=== PATIENT | male | born 1970 | race Caucasian/White ===

== ENCOUNTER 2017-09-29 10:41 | Inpatient (IN) | payer OTHER ==
[~2017-09-29] VITALS: Ht 172.7 cm; Wt 104.9 kg
[~2017-09-29 10:41] MED LIST: ALBUAER3 IN; AMLO5TAB2 PO; IBUP800T24 PO; MONT10TA23 PO; RIZA10TA24 OR; TRAM50TA2 PO
[2017-09-29] MEDS ORDERED: ceFAZolin 1GM/50ML 100 ML IV ONE (11:24)
[2017-09-29] MEDS ORDERED: ACETAMINOPHEN IV 100 ML IV ONE (11:24)
[2017-09-29] MEDS ORDERED: PREGABALIN CAPSULE 75 MG CAP PO ONE (11:30)
[2017-09-29] MEDS ORDERED: ACETAMINOPHEN IV 1000 MG/100ML (10MG/ML) IV ONE (11:30)
[2017-09-29] MEDS ORDERED: ceFAZolin 1GM 2 GM in D5W 5% 100 ML IV ONE (11:30)
[2017-09-29] MEDS ORDERED: CELECOXIB 100 MG CAP PO ONE (11:30)
[2017-09-29] MEDS ORDERED: BUPIVACAINE W/ EPINEPH 0.25% INJ 50ML MDV ONE (13:15)
[2017-09-29] MEDS ORDERED: TRANEXAMIC ACID 20 ML ONE (13:16)
[2017-09-29] MEDS ORDERED: VANCOMYCIN HCL 1000 MG VL ONE (13:19)
[2017-09-29] MEDS ORDERED: LIDOCAINE HCL 2 %PF INJ 10ML AMP IJ ONE (13:37)
[2017-09-29] MEDS ORDERED: PROPOFOL 10 MG/ML 20 ML IV ONE (13:37)
[2017-09-29] MEDS ORDERED: ROCURONIUM 10MG/ML 10ML VIAL IV ONE (13:37)
[2017-09-29] MEDS ORDERED: fentaNYL CITRATE 5 ML ONE (13:37)
[2017-09-29] MEDS ORDERED: MORPHINE SULF(PF) 0.5MG/ML 10ML VIAL ONE (13:40)
[2017-09-29] MEDS ORDERED: KETOROLAC TROMETH 30 MG/ML 1ML VIAL ONE (13:41)
[2017-09-29] MEDS ORDERED: EPINEPHrine HCL 1 MG/1 ML AMP ONE (13:48)
[2017-09-29] MEDS ORDERED: ePHEDrine SULFATE 50 MG/ML AMP ONE (15:02)
[2017-09-29] MEDS ORDERED: GLYCOPYRROLATE 0.2 MG/ML 1ML VIAL ONE ×2 (16:30→16:38)
[2017-09-29] MEDS ORDERED: NEOSTIGMINE 1 MG/ML INJ (10mg/10ML VIAL) ONE (16:30)
[2017-09-29] MEDS: LACTATED RINGER'S 1,000 ML IV SCH (16:55)
[2017-09-29] MEDS ORDERED: Rizatriptan Benzoate 10 MG TAB OR PRN ×2 (17:00→17:30)
[2017-09-29] MEDS ORDERED: hydrALAZINE HCL 20 MG/ML VL IV PRN (17:00)
[2017-09-29] MEDS ORDERED: ONDANSETRON HCL 4 MG/2 ML VIAL IV ONE (17:00)
[2017-09-29] MEDS ORDERED: ONDANSETRON HCL 4 MG/2 ML VIAL IV PRN (17:00)
[2017-09-29] MEDS ORDERED: NALOXONE HCL 0.4 MG/ML VIAL IV PRN (17:00)
[2017-09-29] MEDS ORDERED: NITROGLYCERIN 0.4 MG SL TAB SL PRN ×2 (17:00)
[2017-09-29] MEDS ORDERED: MORPHINE SULF INJ 2 MG/ML SYRINGE 1ML IV PRN ×2 (17:00)
[2017-09-29] MEDS ORDERED: ACETAMINOPHEN 325 MG TAB PO PRN (17:00)
[2017-09-29] MEDS ORDERED: HYDROmorphone HCL 2 MG/ML VL IV PRN ×2 (17:00)
[2017-09-29] MEDS ORDERED: METOCLOPRAMIDE HCL 5MG/ml INJ 2ml VIAL IV ONE (17:00)
[2017-09-29 17:51] LABS: Basophils # (auto) 0 uL; Basophils % (auto) 0.3 % (0.0-2.0); Eosinophils # (auto) 0.1 uL; Hematocrit 42.1 % (41.0-53.0); Hemoglobin 14.2 g/dL (13.5-17.5); Lymphocytes # (auto) 1.3 uL; Lymphocytes % (auto) 17.6 % (10.0-50.0); Mean Corpuscular Hgb Conc. 33.8 g/dL (32.0-36.0); Mean Corpuscular Volume 94.9 fL (80.0-100.0); Monocytes # (auto) 0.6 uL; Monocytes % (auto) 7.9 % (0.0-12.0); Neutrophils # (auto) 5.4 uL; Neutrophils % (auto) 72.2 % (37.0-80.0); Platelet Count (auto) 158 10^3/uL (140-450); Red Blood Cells 4.44 10^6/uL (4.5-5.90); Red Cell Distribution Width 13.7 % (11.8-14.3); White Blood Cell 7.4 10^3/uL (4.4-10.8)
[2017-09-29] MEDS: ALBUTEROL SULF 2.5 MG/0.5ML(0.5%) NEB SOLN NEB SCH ×2 (18:00→23:27)
[2017-09-29 18:01] LABS: BUN/Creatinine Ratio 12.2; Calcium 8.6 mg/dL (8.5-10.1); Potassium 4.3 mmol/L (3.5-5.1)
[2017-09-29 18:07] LABS: INR 1.04 (0.9-1.15); Partial Thromboplastin Time 28.4 sec (23.78-33.04); Prothrombin Time 11.1 sec (9.27-12.13)
[2017-09-29 20:00] VITALS: BP 119/61
[2017-09-29 21:34] VITALS: BP 136/80
[2017-09-29] MEDS: oxyCODONE ER 10 MG TAB PO SCH (22:00)
[2017-09-29] MEDS: SODIUM CHLOR 0.9% PF (SALINE LOCK) 10ML VIAL/SYR IV SCH (22:16)
[2017-09-29] MEDS: DOCUSATE SOD 100 MG CAP PO SCH (22:16)
[2017-09-29] MEDS: ceFAZolin 1GM 2 GM in D5W 5% 100 ML IV SCH (22:16)
[2017-09-29 23:33] VITALS: BP 119/61
[2017-09-30] VITALS (7 sets, daily range): BP systolic 114–123; BP diastolic 59–76
[2017-09-30] MEDS: OXYCODONE W/ ACETAMINOPHEN 5/325MG TABLET PO PRN ×5 (00:17→21:18)
[2017-09-30] MEDS: LACTATED RINGER'S 1,000 ML IV SCH ×3 (02:55→22:29)
[2017-09-30] MEDS: ceFAZolin 1GM 2 GM in D5W 5% 100 ML IV SCH ×2 (05:52→14:47)
[2017-09-30] MEDS: SODIUM CHLOR 0.9% PF (SALINE LOCK) 10ML VIAL/SYR IV SCH ×3 (05:52→22:14)
[2017-09-30] MEDS: ALBUTEROL SULF 2.5 MG/0.5ML(0.5%) NEB SOLN NEB SCH ×4 (06:27→23:45)
[2017-09-30 07:47] LABS: Basophils # (auto) 0 uL; Basophils % (auto) 0.2 % (0.0-2.0); Eosinophils # (auto) 0.1 uL; Eosinophils % (auto) 0.9 % (0.0-7.0); Hematocrit 37.5 % (41.0-53.0); Hemoglobin 12.8 g/dL (13.5-17.5); Lymphocytes # (auto) 0.9 uL; Mean Corpuscular Hgb Conc. 34.1 g/dL (32.0-36.0); Mean Corpuscular Volume 93.8 fL (80.0-100.0); Monocytes # (auto) 1.1 uL; Monocytes % (auto) 11.1 % (0.0-12.0); Neutrophils # (auto) 7.7 uL; Neutrophils % (auto) 78.8 % (37.0-80.0); Platelet Count (auto) 148 10^3/uL (140-450); Red Cell Distribution Width 13.9 % (11.8-14.3); White Blood Cell 9.8 10^3/uL (4.4-10.8)
[2017-09-30 08:00] LABS: Calcium 8.1 mg/dL (8.5-10.1); Potassium 4.3 mmol/L (3.5-5.1)
[2017-09-30 08:03] LABS: Bilirubin, Total 0.6 mg/dL (0.2-1.0); Total Protein 5.5 g/dL (6.4-8.2)
[2017-09-30] MEDS: DOCUSATE SOD 100 MG CAP PO SCH ×2 (09:18→22:14)
[2017-09-30] MEDS: oxyCODONE ER 10 MG TAB PO SCH ×2 (09:19→22:13)
[2017-09-30] MEDS: amLODIPine BESYLATE 5 MG TAB PO SCH (09:19)
[2017-09-30] MEDS: MONTELUKAST SODIUM 10 MG TAB PO SCH (09:20)
[2017-09-30] MEDS: ENOXAPARIN SOD 40 MG/0.4 ML SYRINGE SC SCH (09:21)
[2017-09-30] MEDS: Ensure Enlive Vanilla 8oz Bottle PO SCH ×2 (12:17→19:58)
[2017-10-01] MEDS: OXYCODONE W/ ACETAMINOPHEN 5/325MG TABLET PO PRN ×5 (01:33→23:33)
[2017-10-01 04:55] VITALS: BP 115/67
[2017-10-01] MEDS: ALBUTEROL SULF 2.5 MG/0.5ML(0.5%) NEB SOLN NEB SCH ×3 (06:49→18:29)
[2017-10-01] MEDS: SODIUM CHLOR 0.9% PF (SALINE LOCK) 10ML VIAL/SYR IV SCH ×3 (06:50→22:04)
[2017-10-01] MEDS ORDERED: KETOROLAC TROMETH 30 MG/ML 1ML VIAL IV PRN (07:15)
[2017-10-01 07:53] LABS: Basophils # (auto) 0 uL; Basophils % (auto) 0.5 % (0.0-2.0); Eosinophils # (auto) 0.1 uL; Eosinophils % (auto) 1.2 % (0.0-7.0); Hematocrit 35.3 % (41.0-53.0); Hemoglobin 11.9 g/dL (13.5-17.5); Lymphocytes # (auto) 1.2 uL; Mean Corpuscular Hemoglobin 31.5 pg (28.0-32.0); Mean Corpuscular Hgb Conc. 33.7 g/dL (32.0-36.0); Mean Corpuscular Volume 93.5 fL (80.0-100.0); Monocytes # (auto) 0.9 uL; Monocytes % (auto) 13.2 % (0.0-12.0); Neutrophils # (auto) 4.8 uL; Neutrophils % (auto) 68.1 % (37.0-80.0); Platelet Count (auto) 148 10^3/uL (140-450); Red Blood Cells 3.77 10^6/uL (4.5-5.90); Red Cell Distribution Width 13.8 % (11.8-14.3); White Blood Cell 7.1 10^3/uL (4.4-10.8)
[2017-10-01] MEDS: Ensure Enlive Vanilla 8oz Bottle PO SCH ×3 (08:02→18:04)
[2017-10-01 08:20] LABS: BUN/Creatinine Ratio 7.2; Bilirubin, Total 0.6 mg/dL (0.2-1.0); Calcium 8.3 mg/dL (8.5-10.1); Potassium 3.8 mmol/L (3.5-5.1)
[2017-10-01 09:29] VITALS: BP 126/68
[2017-10-01] MEDS: MONTELUKAST SODIUM 10 MG TAB PO SCH (10:28)
[2017-10-01] MEDS: DOCUSATE SOD 100 MG CAP PO SCH ×3 (10:28→23:33)
[2017-10-01] MEDS: ENOXAPARIN SOD 40 MG/0.4 ML SYRINGE SC SCH (10:28)
[2017-10-01] MEDS: amLODIPine BESYLATE 5 MG TAB PO SCH (10:28)
[2017-10-01] MEDS: oxyCODONE ER 10 MG TAB PO SCH ×2 (10:29→22:00)
[2017-10-01 22:17] VITALS: BP 116/73
[2017-10-02] MEDS: ALBUTEROL SULF 2.5 MG/0.5ML(0.5%) NEB SOLN NEB SCH ×3 (00:33→11:36)
[2017-10-02] MEDS: OXYCODONE W/ ACETAMINOPHEN 5/325MG TABLET PO PRN ×5 (04:40→17:13)
[2017-10-02 04:50] VITALS: BP 132/76
[2017-10-02] MEDS: SODIUM CHLOR 0.9% PF (SALINE LOCK) 10ML VIAL/SYR IV SCH ×2 (06:00→14:00)
[2017-10-02] MEDS: Ensure Enlive Vanilla 8oz Bottle PO SCH ×2 (07:57→12:30)
[2017-10-02 09:00] VITALS: BP 113/68
[2017-10-02 09:16] VITALS: BP 113/68
[2017-10-02] MEDS: DOCUSATE SOD 100 MG CAP PO SCH (10:45)
[2017-10-02] MEDS: MONTELUKAST SODIUM 10 MG TAB PO SCH (10:45)
[2017-10-02] MEDS: ENOXAPARIN SOD 40 MG/0.4 ML SYRINGE SC SCH (10:45)
[2017-10-02] MEDS: oxyCODONE ER 10 MG TAB PO SCH (10:46)
[2017-10-02] MEDS: amLODIPine BESYLATE 5 MG TAB PO SCH (11:29)
[2017-10-02 13:00] VITALS: BP 117/74
[2017-10-02 17:03] VITALS: BP 124/75
== END 2017-10-02 18:30 | disposition home health service (06) | DRG 470 ==
LOC: SUR 10:41 → WEST WING 10:42 → TELE-WESTW 20:55 → WEST WING 10-01 02:09
PROVIDERS: ADMIT Orthopaedic Surgery Adult Reconstructive Orthopaedic Surgery; ATTEND Orthopaedic Surgery Adult Reconstructive Orthopaedic Surgery
PROC: 30233N1 Transfusion of Nonautologous Red Blood Cells into Peripheral Vein, Percutaneous Approach (ICD-10-PCS; 2017-09-29)
PROC: 0SR906A Replacement of Right Hip Joint with Oxidized Zirconium on Polyethylene Synthetic Substitute, Uncemented, Open Approach (ICD-10-PCS; principal; 2017-09-30)
DX: M16.11 Unilateral primary osteoarthritis, right hip (principal); J44.9 Chronic obstructive pulmonary disease, unspecified; I10 Essential (primary) hypertension; F17.210 Nicotine dependence, cigarettes, uncomplicated; G43.909 Migraine, unspecified, not intractable, without status migrainosus; Z83.3 Family history of diabetes mellitus
CPT/HCPCS: 36415; 73502; 76001; 80048; 80053; 85025; 85610; 85730; 86850; 86900; 86901; 86920; 94640; 97110; 97116; 97163; J0131; J0171; J0690; J1885; J2704; J7060